=== PATIENT | female | born 1935 | race Hispanic/Latino ===

== ENCOUNTER 2016-06-07 09:50 | Day surgery (SDC) | payer MEDICARE ==
[2016-06-05 13:19] LABS: Basophils % (Auto) 0.7 % (0.0-1.8); Eosinophils % (Auto) 1.7 % (0.0-4.3); Hematocrit 38.6 % (30.3-42.9); Hemoglobin 12.7 gm/dl (10.1-14.3); Mean Corpuscular HGB Conc 33 % (30-34); Mean Corpuscular Hemoglobin 28 pg (28-32); Mean Corpuscular Volume 86 fl (79-97); Platelet Count 288 K/mm3 (140-440); Red Blood Count 4.49 M/mm3 (3.65-5.03); Red Cell Distribution Width 15.2 % (13.2-15.2); White Blood Count 7.9 K/mm3 (4.5-11.0)
[2016-06-05 13:33] LABS: Alanine Aminotransferase 15 units/L (7-56); Albumin 3.9 g/dL (3.9-5); Albumin/Globulin Ratio 1.6 %; Alkaline Phosphatase 46 units/L (35-129); BUN/Creatinine Ratio 14.44; Bilirubin,Total 0.3 mg/dL (0.1-1.2); Blood Urea Nitrogen 13 mg/dL (7-17); Carbon Dioxide 25 mmol/L (22-30); Chloride 100.3 mmol/L (98-107); Glucose 105 mg/dL (65-100); Sodium 137 mmol/L (137-145); Total Protein 6.4 g/dL (6.3-8.2)
[2016-06-05 13:40] LABS: Anion Gap 16 mmol/L
--- NOTE | 2016-06-05 13:48 | Anesthesia Consultation ---
Anesthesia Consult and Med Hx Date of service: 06/05/16 (Scheduled for cystoscopy and bladder bx on 06/07/16) - Airway Anesthetic Teeth Evaluation: Good ROM Head & Neck: Adequate Mental/Hyoid Distance: Adequate Mallampati Class: Class II Intubation Access Assessment: Probably Good - Pulmonary Exam CTA: Yes - Cardiac Exam Cardiac Exam: RRR - Pre-Operative Health Status ASA Pre-Surgery Classification: ASA2 Proposed Anesthetic Plan: General - Pre-Anesthesia Comment Pre-Anesthesia Comments: Cardiac clearance on chart. EF 55% on 05/24/16. No previous anesthesia complications. - Pulmonary Hx Smoking: No Hx Asthma: No Hx Respiratory Symptoms: (Pulmonary HTN) Hx Sleep Apnea: Yes (DX SLEEP APNEA WITH CPAP USE) - Cardiovascular System Hx Hypertension: Yes (X 15 YRS) Hx Coronary Artery Disease: No Hx Heart Murmur: Yes - Central Nervous System CVA: No Hx Back Pain: Yes Hx Psychiatric Problems: Yes (Anxiety and depression) - Gastrointestinal Hx Gastroesophageal Reflux Disease: No - Endocrine Hx Renal Disease: Yes (CKD III) Hx Insulin Dependent Diabetes: No Hx Non-Insulin Dependent Diabetes: No Hx Hypothyroidism: Yes (ON MEDS) - Hematic Hx Anemia: Yes - Other Systems Hx Cancer: Yes (Multiple myeloma 10 yrs ago; Breast CA- last chemo 3 mo's ago ) Hx Obesity: No - Additional Comments Anesthesia Medical History Comments: h/o LLE DVT 15 yrs ago- reports still present. h/o recurrent UTI's and Fibromyalgia.
[~2016-06-07 09:50] MED LIST: LACTATED RINGERS 1,000 ML IV SCH; PEPCID PO NR
--- NOTE | 2016-06-07 10:24 | Short Stay Summary ---
Short Stay Documentation Date of service: 06/07/16 - History H&P: obtained from office - Allergies and Medications Current Medications: Allergies atropine Allergy (Verified 05/30/16 12:15) Rash CAUSES BLISTERS benazepril Allergy (Verified 05/30/16 13:35) Swelling cefuroxime Allergy (Verified 05/30/16 13:35) Unknown cephalexin Allergy (Verified 05/30/16 13:35) Unknown cephalexin monohydrate [From Keflex] Allergy (Verified 05/30/16 13:35) Rash codeine Allergy (Verified 05/30/16 13:35) Vomiting lisinopril Allergy (Verified 05/30/16 13:35) Unknown losartan Allergy (Verified 05/30/16 13:35) Unknown metoprolol Allergy (Verified 05/30/16 13:35) Swelling Penicillins Allergy (Verified 05/30/16 13:35) Rash quinapril Allergy (Verified 05/30/16 13:35) Vomiting ramipril Allergy (Verified 05/30/16 13:35) Unknown Sulfa (Sulfonamide Antibiotics) Allergy (Verified 05/30/16 13:35) Unknown Tetanus Vaccines & Toxoid Allergy (Verified 05/30/16 13:35) Swelling Home Medications Medication Instructions Recorded Confirmed Last Taken Type Cholecalciferol (Vitamin D3) 2,000 unit PO QDAY 05/30/16 05/30/16 Unknown History [Vitamin D3] Cyanocobalamin (Vitamin B-12) 2,500 mcg PO DAILY 05/30/16 05/30/16 Unknown History [Vitamin B12] Hydrochlorothiazide [Hctz] 12.5 mg PO PRN PRN 05/30/16 05/30/16 Unknown History Levothyroxine [Synthroid] 88 mcg PO QAM 05/30/16 05/30/16 Unknown History Multivit-Min/FA/Lycopen/Lutein 1 each PO DAILY 05/30/16 05/30/16 Unknown History [Centrum Silver Tablet] Olmesartan/Hydrochlorothiazide 1 tab PO QDAY 05/30/16 05/30/16 Unknown History [Benicar HCT 20-12.5 mg] Omeprazole 40 mg PO DAILY 05/30/16 05/30/16 Unknown History Paroxetine HCl [Paroxetine ER] 25 mg PO DAILY 05/30/16 05/30/16 Unknown History Potassium Chloride [Klor-Con 8] 8 meq PO PRN PRN 05/30/16 05/30/16 Unknown History Active Medications Famotidine (Pepcid) 20 mg PO PREOP NR Stop: 06/09/16 05:59 Lactated Ringer's (Lactated Ringers) 1,000 mls @ 42 mls/hr IV DIRECT ROSAS - Brief post op/procedure progress note Date of procedure: 06/07/16 Pre-op diagnosis: bladder lesion /erythema Post-op diagnosis: same Procedure: cysto with bx low susp lesion post/left/trigone w;/ fulg Anesthesia: GETA Findings: low susp raised areas and trigone low raised/erythema Surgeon: YANA ALEXANDRE Estimated blood loss: minimal Pathology: list (bx x3) Specimen disposition: to lab Condition: stable - Hospital course Hospital course: orpacuhome - Disposition Condition at discharge: Good Disposition: DISCHARGED TO HOME OR SELFCARE Short Stay Discharge Plan Activity: advance as tolerated Diet: advance as tolerated Follow up with: YANA ALEXANDRE MD [Staff Physician] - 7 Days
[2016-06-07] MEDS ORDERED: XYLOCAINE MPF 2% ONE (11:39)
[2016-06-07] MEDS ORDERED: DIPRIVAN 10 MG/ML IV ONE (11:39)
[2016-06-07] MEDS ORDERED: SUBLIMAZE ONE (11:39)
--- NOTE | 2016-06-07 11:59 | Anesthesia Day of Surgery ---
Anesthesia Day of Surgery - Day of Surgery Patient Examined: Yes Patient H&P Reviewed: Yes Patient is NPO: Yes Cardiac Clearance: Yes
[2016-06-07] MEDS ORDERED: VANCOMYCIN/NS 1 GM/250 ML 250 ML IV NR (12:00)
[2016-06-07] MEDS ORDERED: ePHEDrine SULFATE ONE (12:25)
[2016-06-07] MEDS ORDERED: OMNIPAQUE (300 MG) IV ONE (12:39)
[2016-06-07] MEDS ORDERED: WATER FOR IRRIG STERILE IR ONE (12:39)
[2016-06-07] MEDS ORDERED: ZOFRAN ONE (12:43)
[2016-06-07] MEDS ORDERED: DILAUDID ONE (13:21)
[2016-06-07] MEDS ORDERED: REGLAN IV PRN (13:29)
[2016-06-07] MEDS ORDERED: DILAUDID IV PRN (13:31)
[2016-06-07] MEDS ORDERED: ZOFRAN IV PRN (13:31)
[2016-06-07] MEDS ORDERED: BENADRYL ONE (13:34)
[2016-06-07] MEDS ORDERED: REGLAN ONE (13:35)
[2016-06-07] MEDS ORDERED: BENADRYL IV PRN (13:35)
--- NOTE | 2016-06-07 13:39 | Post Anesthesia Evaluation ---
- Post Anesthesia Evaluation Patient Participated: Yes Airway Patent: Yes Stable Respiratory Function: Yes Temp > 96.8F: Yes Pain Manageable: Yes Adequeate Hydration: Yes Anesthesia Complications: No Block Receding Appropriately: Not Applicable
[2016-06-07 15:16] VITALS: BP 134/60
[2016-06-07] MEDS ORDERED: PERCOCET 5/325 PO ONE (16:00)
--- NOTE | 2016-06-08 08:59 | Fluoroscopy Report ---
RETROGRADE PYELOGRAM: HISTORY: Bladder neoplasm. There is adequate filling of the ureters and intrarenal collecting systems with no filling defects or anatomic abnormalities identified. IMPRESSION: Unremarkable bilateral retrograde pyelograms.
--- NOTE | 2016-06-15 08:30 | Operative Report ---
PREOPERATIVE DIAGNOSES: Bladder lesion, erythema. POSTOPERATIVE DIAGNOSES: Bladder lesion, erythema. PROCEDURE: Cystoscopy with biopsy low-suspicion lesion in posterolateral left bladder and trigone with fulguration. FINDINGS: Low-suspicion raised areas in the trigone especially low-raised erythema. ANESTHESIA: General. ESTIMATED BLOOD LOSS: Minimal. PATHOLOGY: Biopsies x3 to lab. CLINICAL INDICATIONS: Counseled [facility]BA. The patient has a history of a cystoscopy with some slightly suspicious areas, counseled on options, wanted to proceed with biopsy. DESCRIPTION OF PROCEDURE: Had antibiotics and SCDs, transferred to OR suite, supine position, anesthesia, dorsal lithotomy, prepped and draped in standard fashion. A 22-Sammarinese scope passed. Pancystoscopy 30 and 70-degree lens. Retrograde pyelogram with 8-Sammarinese cone-tip right retrograde, normal right distal ureter, proximal ureter, renal pelvis, calyces. No filling defects or hydronephrosis. This was repeated on the left side with normal left findings on both the left and right RPG. At this point, a biopsy was undertaken. On the posterior bladder wall, there was an area of erythema at the left lateral wall, trigone was slightly raised, some areas of erythema, slightly irregular, but still was probable low-suspicion biopsy taken. These areas were fulgurated and cauterized. The bladder was irrigated and drained. Exam under anesthesia, no palpable urethral masses. The patient was awakened and transferred to the PACU in good and stable condition. JOB# [id number]/NTS
== END 2016-06-07 15:30 | disposition home or self-care (01) ==
LOC: OR 09:50
PROVIDERS: ATTEND Urology
DX: N30.20 Other chronic cystitis without hematuria (principal); K21.9 Gastro-esophageal reflux disease without esophagitis; I13.10 Hypertensive heart and chronic kidney disease without heart failure, with stage 1 through stage 4 chronic kidney disease, or unspecified chronic kidney disease; N18.3 Chronic kidney disease, stage 3 (moderate); E03.9 Hypothyroidism, unspecified; G47.30 Sleep apnea, unspecified; F32.9 Major depressive disorder, single episode, unspecified; F41.9 Anxiety disorder, unspecified; D64.9 Anemia, unspecified; Z90.49 Acquired absence of other specified parts of digestive tract; Z90.710 Acquired absence of both cervix and uterus; Z90.12 Acquired absence of left breast and nipple; Z87.440 Personal history of urinary (tract) infections; Z85.3 Personal history of malignant neoplasm of breast; Z86.718 Personal history of other venous thrombosis and embolism
CPT/HCPCS: 36415; 52204; 74420; 80053; 85025; 88305; A4217; C1758; J1170; J1200; J2405; J2704; J2765; J3010; J7120; Q9967